=== PATIENT | female | born 1990 | race Native Hawaiian/Other Pacific Islander ===

== ENCOUNTER 2020-12-14 19:47 | Emergency (ER) | payer OTHER ==
[~2020-12-14] VITALS: Ht 154.9 cm; Wt 63.5 kg
[2020-12-14 21:26] LABS: PLATELET COUNT 205 K/uL (152-353)
[2020-12-14 23:30] VITALS: BP 110/60; TEMP 98.1
== END 2020-12-14 23:30 | disposition home or self-care (01) ==
LOC: ED 19:47
PROVIDERS: Family Medicine
DX: N39.0 Urinary tract infection, site not specified (principal); R51.9 Headache, unspecified; E86.0 Dehydration; F15.10 Other stimulant abuse, uncomplicated
CPT/HCPCS: 36415; 80053; 80307; 81000; 81025; 85027; 87077; 87086; 87088; 87186; 87490; 87502; 87590; 87635; 96360; 96365; 99284; J0696; U0003